=== PATIENT | female | born 1980 | race Caucasian/White ===

== ENCOUNTER 2024-07-26 17:29 | Emergency (ER) | payer OTHER ==
[2024-07-26 17:47] VITALS: TEMP 98.4
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
[2024-07-26] MEDS ORDERED: PERCOCET TABLET 5/325MG ONE (20:05)
[2024-07-26] MEDS: PERCOCET TABLET 5/325MG PO STA (20:10)
[2024-07-26 20:38] VITALS: BP 113/77; PULSE 74; RESP 16; O2SAT 98
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
== END 2024-07-26 20:38 | disposition home or self-care (01) ==
LOC: ED 17:29
DX: S32.018A Other fracture of first lumbar vertebra, initial encounter for closed fracture (principal); R07.89 Other chest pain; S50.812A Abrasion of left forearm, initial encounter; V44.5XXA Car driver injured in collision with heavy transport vehicle or bus in traffic accident, initial encounter
CPT/HCPCS: 71250; 74176; 99285; A9270-GY